=== PATIENT | male | born 1990 | race Caucasian/White ===

== ENCOUNTER 2019-09-29 10:08 | Emergency (ER) | payer OTHER ==
[~2019-09-29] VITALS: Ht 167.6 cm; Wt 68.0 kg
[2019-09-29] MEDS ORDERED: KETO10TA2 PO (10:40)
== END 2019-09-29 11:06 | disposition home or self-care (01) ==
LOC: ER 10:08
DX: S90.02XA Contusion of left ankle, initial encounter (principal); W10.9XXA Fall (on) (from) unspecified stairs and steps, initial encounter; Y93.89 Activity, other specified; Y92.89 Other specified places as the place of occurrence of the external cause; Y99.8 Other external cause status